=== PATIENT | male | born 1935 | race American Indian/Alaskan Native ===

== ENCOUNTER 2016-06-02 06:31 | Inpatient (IN) ==
[2016-06-02] MEDS ORDERED: cefOXitin 2,000 MG in D5% in Water (Mini-Bag+) 100 ML IVPB ONE (06:56)
[2016-06-02] MEDS ORDERED: Lidocaine -MPF 1% 2 ML VIAL ID ONE (06:56)
[2016-06-02] MEDS ORDERED: Ringers Solution, Lactated 1,000 ML IVC SCH (07:00)
[2016-06-02] MEDS ORDERED: *HR* Propofol 200 MG/20 ML VIAL IVP ONE (07:06)
[2016-06-02] MEDS ORDERED: *HR* FentaNYL (PF) 100 MCG/2 ML VIAL ONE ×2 (07:06→09:03)
[2016-06-02] MEDS ORDERED: *HR* Succinylcholine 200 MG/10 ML VIAL IVP ONE (07:07)
[2016-06-02] MEDS ORDERED: Ondansetron 4 MG/2 ML VIAL ONE (07:07)
[2016-06-02] MEDS ORDERED: Dexamethasone 4 MG/ML VIAL ONE (07:07)
[2016-06-02] MEDS ORDERED: Lidocaine -MPF 2% 2 ML VIAL ONE (07:07)
[2016-06-02] MEDS ORDERED: *HR* Rocuronium Bromide 50 MG/5 ML VIAL ONE (07:07)
[2016-06-02] MEDS ORDERED: Lidocaine -MPF 4% 5 ML AMPUL ONE (07:08)
[2016-06-02] MEDS ORDERED: EPHEDrine 50 MG/ML VIAL ONE (07:19)
--- NOTE | 2016-06-02 07:22 | Anesthesia Evaluation PreOp ---
Date of Encounter: 06/02/16 Time of Encounter: 07:20 - Past History Planned Operation: Robotic Colon Resection Cardiac History: HTN, Arrhythmia (AFib), Other (Severe MR) Pulmonary History: Denies Any Significant HX MIRROR SPECIALIST History: Denies Any Significant HX Other Medical History: Denies Any Significant HX Anesthesia History: No Prior Anesthetic Complications Alcohol Use: none Drug use: none Medications and Allergies Carvedilol 3.125 mg PO BID 05/13/16 [History] LORazepam [Ativan] 0.5 mg PO TID 05/13/16 [History] Silodal PO HS 05/13/16 [History] Torsemide 10 mg PO BID 05/13/16 [History] Acetaminophen [Tylenol] 650 mg PO Q6HR 05/18/16 [History] Ciprofloxacin [Cipro] 500 mg PO BID 5 Days 05/18/16 [Rx] MetroNIDAZOLE [Flagyl] 500 mg PO TID 7 Days 05/18/16 [Rx] Allergies No Known Allergies Allergy (Verified 05/18/16 16:49) - Meds/Allergy Pre-op Review Medications Reviewed: Yes Allergies Reviewed: Yes Beta Blockers on Current Med List: Yes (Took Coreg today 0600) Anesthesia Results - Labs Laboratory Tests 05/26/16 05/26/16 16:40 16:40 Hgb 11.3 L Hct 36.8 L Plt Count 144 Sodium 136 Potassium 4.7 H BUN 13 Creatinine 0.83 - Imaging EKG: report reviewed (AFib) Additional studies: LVEF 55% Severe MR Anesthesia Exam O2 Sat Height 1.73 m Height 1.73 m Height 1.73 m Weight 59.874 kg Weight 59.874 kg Weight 59.874 kg O2 Sat by Pulse Oximetry 99 O2 Sat by Pulse Oximetry 99 Vital Signs Temp Pulse Resp BP Pulse Ox 97.6 F 90 16 142/88 99 06/02/16 06:54 06/02/16 06:54 06/02/16 06:54 06/02/16 06:54 06/02/16 06:54 Height: 5'8 Weight: 132 lbs NPO (# of Hours): MN Pain Scale: 0 - HEENT Pupil (Motor): Pupils equal, EOMI Mallampati: III Teeth: Edentulous Oral Opening: Less than or equal to 3 - MIRROR SPECIALIST LOC: Oriented MIRROR SPECIALIST Motor: Normal RUE, Normal LUE, Normal RLE, Normal LLE, Normal Face MIRROR SPECIALIST Sensory: Normal: RUE, LUE, RLE, LLE, Face - Cardiac Rhythm: Regular Murmur: None JVD: No Carotid Bruit: No - Pulmonary Breath Sounds: bilateral Clear Respiratory Effort: Symmetrical Anesthesia Assess/Plan ASA Score: 3 (AFib) Modified Chava Scale for Level of Consciousness: Cooperative, oriented, and tranquil Anesthetic Plan: General Monitoring Plan: Standard Monitors Recovery Plan: PACU (Discussed GA, agrees to proceed)
[2016-06-02] MEDS ORDERED: Heparin 1,000 UNITS/500 mL NS 500 ML ONE (07:42)
[2016-06-02] MEDS ORDERED: Albumin Human 5% 0 GM/0 ML VIAL ONE (07:46)
--- NOTE | 2016-06-02 08:17 | History & Physical Report ---
Date of Encounter: 06/02/16 Time of Encounter: 08:16 24 Hour HP Update - Instructions Instructions: If the History and Physical is less than 30 days old and was completed prior to A.M. admission and or procedure and has NOT been updated on calendar day of procedure please complete this update prior to performing procedure. - Update Patient reports changes in Medical Condition: No Changes in assessment/condition: No Changes in Medication: No Preop tests/diagnostics Reviewed: Yes Surgery Remains Indicated: Yes Consent for Planned Operative Procedure(s) Verified: Yes - Pre-Operative Checklist Preoperative Checklist Indicated: Yes Prophylactic Antibiotic Ordered: Yes Home Medications Include Beta Salo: Yes Beta Salo Taken Today (Day of Surgery): Yes
[2016-06-02] MEDS ORDERED: *HR* Etomidate 40 MG/20 ML VIAL IVP ONE (08:24)
[2016-06-02] MEDS ORDERED: *HR* Metoprolol 5 MG/5 ML VIAL IVP ONE (09:17)
[2016-06-02] MEDS ORDERED: Esmolol 100 MG/10 ML VIAL IVP ONE (09:21)
[2016-06-02] MEDS ORDERED: *HR* Promethazine 25 MG/ML VIAL IVP PRN (09:57)
[2016-06-02] MEDS ORDERED: Neostigmine Methylsulfate 3 MG/3 ML SYRINGE ONE (10:10)
[2016-06-02] MEDS ORDERED: Acetaminophen IV 1,000 MG/100 ML INFUS..BTL ONE (10:11)
[2016-06-02] MEDS ORDERED: *HR* HYDROmorphone 2 MG/ML SYRINGE ONE (10:50)
[2016-06-02] MEDS: *HR* HYDROmorphone (PF) 1 MG/ML SYRINGE IVP PRN ×2 (11:42→11:47)
--- NOTE | 2016-06-02 11:51 | Operative Note ---
Date of procedure: 06/02/16 Pre-op diagnosis: Sigmoid Colon cancer Post-op diagnosis: same Procedure: Robotic Sigmoid resection with 33 mm EEA stapling Anesthesia: OFE Surgeon: Tonio Virk Estimated blood loss (cc): 20 Condition: stable Disposition: floor Procedure in Detail: After informed consent, patient taken operating room placed supine position. After adequate sedation anesthesia patient was placed in a lithotomy position. After proper timeout a 12 mm cannula site was placed right superior to the umbilicus. Pneumoperitoneum was greater. A 13 mm cannula was placed in right lower quadrant. 5 mm camera was placed in the right upper quadrant. An 8 mm cannula was placed in subxiphoid region followed by another 8 mm in the left lower quadrant. Patient was placed in a headdown position. The robot was docked over the patient's left hip. Small bowel swept out of the pelvis. Rectosigmoid colon was then grasped and retracted cephalad. The peritoneum was then scored level of the sacral promontory. The left ureter was identified and kept on harm's way. The inferior mesenteric artery was then taken with a vessel sealer. The lateral rectosigmoid stalks were taken down the vessel sealer. The dissection was carried out down to approximate 4 cm above the pelvic floor. Rectosigmoid colon was dissected free from the retro-pubic tubercle region. Once it was freed a 45 mm robotic Endo staplers fired across the rectum. Once it was retracted and area was demarcated on the sigmoid colon for transection. Indocyanine green was infused and we had excellent perfusion. A counterincision was made in the suprapubic region. Dissection carried down the anterior rectus sheath. The rectus muscles were then divided in the midline with Ryanne clamp. Once they were split the rectosigmoid colon was delivered. Jenniffer bowel clamps are used to place across the colon proximal and distal and transected. Allis clamps are placed on the bowel and then a pursestring suture device placed on the colon. 3-0 Prolene suture was passed. A pursestring sutures and created and a 33 mm EEA anvil was placed. Suture was tied and secured. Colon was then placed back in the pelvis. The stapler was passed through the anal canal and to the rectal stump and then the spear was placed through the staple line. The anvil was then connected secured and fired. There were 2 excellent donuts. A leak test revealed no leak. At that point the procedure was terminated. All incisions are closed with 0 Vicryl suture and 4-0 Vicryl suture. Marcaine was inserted in the Pfannenstiel incision. She tolerated the procedure well.
[2016-06-02] MEDS ORDERED: *HR* HYDROmorphone 20 MG/20 ML PCA IV PRN (12:05)
[2016-06-02] MEDS ORDERED: Naloxone 0.4 MG/ML INJ IVP PRN (12:05)
[2016-06-02] MEDS ORDERED: Ondansetron 4 MG/2 ML VIAL IVP PRN (12:05)
--- NOTE | 2016-06-02 12:11 | Anesthesia Evaluation Post Op ---
Date of Encounter: 06/02/16 Time of Encounter: 12:10 - Vital Signs Vital Signs: Vital Signs/O2 Sat/Glucose, Most Current Temp Pulse Resp BP Pulse Ox 06/02/16 11:47 66 18 108/72 96 06/02/16 11:37 97.1 F L 63 17 106/69 98 06/02/16 11:27 65 16 95/67 100 06/02/16 11:17 66 16 104/70 99 06/02/16 11:07 97.4 F L 68 20 108/74 100 - Lungs Lungs: Clear Ascult./Percussion - Airway Airway: Non-obstructed - Cardiovascular Baseline Rhythm - Mental Status Mental Status: Alert & Oriented, Answers Appropriately - Pain Pain Scale: 1 - Nausea Vomiting Nausea Vomiting: Not Present - Hydration Hydration: Suarez catheter - Discharge PostOp Status: Transfer Patient to floor
[2016-06-02] MEDS: D5% in 0.45% NACL 1,000 ML IVC SCH (13:57)
[2016-06-02] MEDS: *HR* Heparin 5,000 UNIT/ML VIAL SQ SCH ×2 (14:49→21:06)
[2016-06-02] MEDS: Ketorolac 15 MG/ML VIAL IVP SCH ×2 (18:32→23:56)
[2016-06-03] MEDS: D5% in 0.45% NACL 1,000 ML IVC SCH ×2 (03:28→14:06)
[2016-06-03 05:41] LABS: Basophils % 0.1 %; Hematocrit 33.5 % (37.5-50.1); Hemoglobin 10.8 g/dL (12.9-16.9); Immature Granulocytes % 0.4 % (0-4); Immature Platelets 3.9 % (1.1-6.1); Lymphocytes # 0.9 K/mcL (0.6-4.6); Lymphocytes % 12.9 %; Mean Corpuscular HGB Conc 32.2 g/dL (31.6-35.5); Mean Corpuscular Hemoglobin 29.5 pg (28.0-33.3); Mean Corpuscular Volume 91.5 fL (83.0-100.0); Mean Platelet Volume 10.9 fL (9.4-12.4); Monocytes # 0.5 K/mcL (0.0-1.3); Monocytes % 6.9 %; Neutrophils # 5.3 K/mcL (1.6-8.9); Platelet Count 110 K/mcL (140-400); Red Blood Count 3.66 M/mcL (4.19-5.50); Red Cell Distribution Width 18.6 % (11.5-14.5); Segmented Neutrophils % 79.7 %
[2016-06-03 05:53] LABS: BUN/Creatinine Ratio 15 (6-26); Blood Urea Nitrogen 13 mg/dL (8-26); Calcium 8.9 mg/dL (8.6-10.8); Carbon Dioxide 23 mEq/L (19-29); Chloride 101 mEq/L (98-109); Glucose 129 mg/dL (70-99); Osmolality,Calculated 274 (280-300); Potassium 4.4 mEq/L (3.5-4.5); Sodium 131 mEq/L (136-145); eGFR For African Americans > 60 (> 60); eGFR For Non-African Americans > 60 (> 60)
[2016-06-03] MEDS: Ketorolac 15 MG/ML VIAL IVP SCH ×3 (06:18→17:44)
[2016-06-03] MEDS: *HR* Heparin 5,000 UNIT/ML VIAL SQ SCH (06:24)
[2016-06-03 09:19] LABS: INR 1.2; Prothrombin Time 12.7 Seconds (9.4-12.1)
[2016-06-03 09:22] LABS: Activated Partial Thrombo Time 30.7 Seconds (26.0-36.0)
[2016-06-03] MEDS ORDERED: Lidocaine -MPF 1% 5 ML AMPUL INFILT ONE (12:02)
--- NOTE | 2016-06-03 13:52 | General Surgery Progress Note ---
Date of Encounter: 06/02/16 Time of Encounter: 12:30 - Assessment and Plan (1) Colon cancer Current Visit: No Status: Acute POD #1 Robotic Sigmoid resection with 33 mm EEA stapling Continue clear liquids while awaiting flatus Supportive care/pain control- HUMAN RESOURCES REPRESENTATIVE and toradol RLQ trocar site sutured today and bleeding resolved at this time Increase activity as tolerated Discontinue chew catheter Resume home medications IS every 1 hour while awake CBC in the am Qualifiers: Colon location: sigmoid Qualified Code(s): C18.7 - Malignant neoplasm of sigmoid colon (2) DVT prophylaxis Current Visit: Yes Status: Acute Heparin on hold for now and will resume 06/04/16 in the am EPCDs to bilateral lower extremities for DVT prophylaxis Subjective Patient reports: feels better, still having pain, tolerating liquids well, no flatus, no bowel movement, afebrile, other (Bleeding from RLQ trocar site starting at 0300. ) Objective Vital Signs - Last 8 Hours Temp Pulse Resp BP Pulse Ox 06/03/16 11:35 98.4 F 83 17 112/63 97 06/03/16 08:22 98.0 F 87 18 129/72 96 06/03/16 06:51 96 06/03/16 06:00 98.7 F 93 16 118/75 96 Intake and Output 06/02/16 06/03/16 06/03/16 23:59 07:59 15:59 Intake Total 0 / 0 1380 / 1380 346 / 346 Output Total 0 / 0 350 / 350 100 / 100 Balance 0 / 0 1030 / 1030 246 / 246 Intake: IV Fluids 1380 / 1380 286 / 286 D5% And 0.45% Nacl 1000 1380 / 1380 286 / 286 Ml Bag 1,000 ML @ 75 mls/ hr IVC .[id number] [facility] Rx#: [id number] Oral 0 / 0 60 / 60 Output: Urine 0 / 0 Catheter 350 / 350 100 / 100 Other: Meal Breakfast - General physical appearance well developed, well nourished, no distress - Eyes normal ocular movement - ENT normal mucosa, atraumatic, normocephalic - Neck Neck exam: trachea midline - Respiratory normal respiratory effort, clear to auscultation - Cardiovascular Cardiovascular exam: Present: RRR - Abdomen Abdomen: Present: bowel sounds present, soft, tender (minimal, expected post- operative tenderness), wound (RLQ trocar site with steady oozing noted) - Genitourinary other (chew catheter to SD with clear, yellow urine noted) - Neurologic CN 2-12 grossly intact - Psychiatric oriented to time, oriented to person, oriented to place, speech is normal, memory intact, other (language barrier noted) - Labs 06/03/16 05:30 06/03/16 05:30 Diabetes panel 06/03/16 Range/Units 05:30 Sodium 131 L (136-145) mEq/L Potassium 4.4 (3.5-4.5) mEq/L Chloride 101 (98-109) mEq/L Carbon Dioxide 23 (19-29) mEq/L BUN 13 (8-26) mg/dL Creatinine 0.86 (0.72-1.25) mg/dL Glucose 129 H (70-99) mg/dL Calcium 8.9 (8.6-10.8) mg/dL Calcium panel 06/03/16 Range/Units 05:30 Calcium 8.9 (8.6-10.8) mg/dL Pituitary panel 06/03/16 Range/Units 05:30 Sodium 131 L (136-145) mEq/L Potassium 4.4 (3.5-4.5) mEq/L Chloride 101 (98-109) mEq/L Carbon Dioxide 23 (19-29) mEq/L BUN 13 (8-26) mg/dL Creatinine 0.86 (0.72-1.25) mg/dL Glucose 129 H (70-99) mg/dL Calcium 8.9 (8.6-10.8) mg/dL Adrenal panel 06/03/16 Range/Units 05:30 Sodium 131 L (136-145) mEq/L Potassium 4.4 (3.5-4.5) mEq/L Chloride 101 (98-109) mEq/L Carbon Dioxide 23 (19-29) mEq/L BUN 13 (8-26) mg/dL Creatinine 0.86 (0.72-1.25) mg/dL Glucose 129 H (70-99) mg/dL Calcium 8.9 (8.6-10.8) mg/dL - VTE Documentation of Mechanical Device: Intermittent pneumatic compression device Consult Discharge Plan - Plan Referrals: Salazar Vogel DO [Primary Care Provider] -
[2016-06-03] MEDS: BISOPROLOL FUMARATE 2.5 MG PO SCH (14:01)
[2016-06-03] MEDS: TORSEMIDE 10 MG PO SCH ×3 (14:02→22:39)
[2016-06-04] MEDS: Ketorolac 15 MG/ML VIAL IVP SCH ×4 (00:06→20:26)
[2016-06-04] MEDS: D5% in 0.45% NACL 1,000 ML IVC SCH ×2 (03:35→19:13)
[2016-06-04 06:13] LABS: Basophils % 0.4 %; Eosinophils % 1.3 %; Hematocrit 28.4 % (37.5-50.1); Immature Granulocytes % 0.4 % (0-4); Mean Corpuscular Volume 88.5 fL (83.0-100.0); Red Blood Count 3.21 M/mcL (4.19-5.50)
[2016-06-04 06:15] LABS: Eosinophils # 0.1 K/mcL (0.0-0.6); Hemoglobin 9.7 g/dL (12.9-16.9); Immature Platelets 4.6 % (1.1-6.1); Lymphocytes # 0.9 K/mcL (0.6-4.6); Lymphocytes % 19.4 %; Mean Corpuscular HGB Conc 34.2 g/dL (31.6-35.5); Mean Corpuscular Hemoglobin 30.2 pg (28.0-33.3); Monocytes # 0.3 K/mcL (0.0-1.3); Monocytes % 6.8 %; Neutrophils # 3.4 K/mcL (1.6-8.9); Red Cell Distribution Width 17.5 % (11.5-14.5); Segmented Neutrophils % 71.7 %
[2016-06-04] MEDS: *HR* Heparin 5,000 UNIT/ML VIAL SQ SCH ×2 (06:22→16:50)
[2016-06-04 06:42] LABS: Platelet Count 92 K/mcL (140-400)
[2016-06-04 06:43] LABS: Anisocytosis 1+ (Not Present); Microcytosis Present (Not Present); Platelet Estimate Decreased (Normal); Reactive Lymphocytes Present (Not Present)
[2016-06-04] MEDS: BISOPROLOL FUMARATE 2.5 MG PO SCH (09:11)
[2016-06-04] MEDS: TORSEMIDE 10 MG PO SCH ×2 (09:12→20:18)
[2016-06-04] MEDS ORDERED: *HR* HYDROmorphone (PF) 1 MG/ML SYRINGE IVP PRN (11:08)
--- NOTE | 2016-06-04 11:17 | General Surgery Progress Note ---
Date of Encounter: 06/02/16 Time of Encounter: 11:00 - Assessment and Plan (1) Colon cancer Current Visit: No Status: Acute POD #2 Robotic Sigmoid resection with 33 mm EEA stapling Advance to full liquids Supportive care/pain control- added oral Tylenol for mild pain, Percocet for moderate pain and possible Dilaudid for BTP IF fluids- decrease to 60ml/hour RLQ trocar site with no signs of further bleeding Increase activity as tolerated- ambulate in the hallways Continue chew catheter Continue home medications IS every 1 hour while awake CBC in the am Qualifiers: Colon location: sigmoid Qualified Code(s): C18.7 - Malignant neoplasm of sigmoid colon (2) Thrombocytopenia Current Visit: Yes Status: Chronic Plt- 110>92 Continue to monitor (3) DVT prophylaxis Current Visit: Yes Status: Acute Heparin 5,000 units SQ twice daily for DVT prophylaxis EPCDs to bilateral lower extremities for DVT prophylaxis Subjective Patient reports: feels better, still having pain, pain is less, tolerating liquids well, flatus, bowel movement, diarrhea, blood in stool (expected), afebrile, other (Unable to void and chew catheter reinserted yesterday 06/03/16) Objective Vital Signs - Last 8 Hours Temp Pulse Resp BP Pulse Ox 06/04/16 08:05 98.6 F 92 18 128/75 96 06/04/16 04:08 98.5 F 90 16 101/68 96 Intake and Output 06/03/16 06/04/16 06/04/16 23:59 07:59 15:59 Intake Total 270 / 270 730 / 730 427 / 427 Output Total 150 / 150 550 / 550 325 / 325 Balance 120 / 120 180 / 180 102 / 102 Intake: IV Fluids 270 / 270 730 / 730 427 / 427 D5% And 0.45% Nacl 1000 270 / 270 730 / 730 427 / 427 Ml Bag 1,000 ML @ 75 mls/ hr IVC .[id number] [facility] Rx#: [id number] Oral 0 / 0 Output: Urine 150 / 150 Catheter 550 / 550 325 / 325 - General physical appearance well developed, well nourished, no distress - Eyes normal ocular movement - ENT normal mucosa, atraumatic, normocephalic - Neck Neck exam: trachea midline - Respiratory normal respiratory effort, clear to auscultation - Cardiovascular Cardiovascular exam: Present: RRR - Abdomen Abdomen: Present: bowel sounds present, soft, tender (expected post-operative tenderness) - Incision Incision: Present: clean and dry, intact - Genitourinary other (chew catheter to SD with clear, yellow urine) - Integumentary no rash - Neurologic CN 2-12 grossly intact - Psychiatric oriented to time, oriented to person, oriented to place, speech is normal, memory intact - Labs 06/04/16 05:50 06/03/16 05:30 - VTE Documentation of Mechanical Device: Intermittent pneumatic compression device Consult Discharge Plan - Plan Referrals: Salazar Vogel DO [Primary Care Provider] - - Attending Attestation I examined this patient and my medical decision-making was reviewed with the SOLAR FIELD INSTALLATION CREW MEMBER/PA/Advanced Practice Nurse/Resident Physician. I agree with the documented findings, disposition and treatment plan as described except to the extent set forth below.
--- NOTE | 2016-06-04 11:24 | Discharge Summary ---
<MikeSusan Saroj - Last Filed: 06/04/16 11:22> Date of Encounter: 06/02/16 Time of Encounter: 11:22 - Discharge Diagnosis (1) Colon cancer Priority: Primary Status: Acute Qualifiers: Colon location: sigmoid Qualified Code(s): C18.7 - Malignant neoplasm of sigmoid colon (2) Thrombocytopenia Priority: Secondary Status: Chronic (3) DVT prophylaxis Priority: Secondary Status: Acute - Discharge Medications Prescriptions: OxyCODONE/APAP 5/325 [Percocet 5/325 MG] 1 each PO Q6HR PRN #30 tablet PRN Reason: Moderate Pain Docusate [Colace] 100 mg PO BID PRN #30 capsule PRN Reason: Constipation Home Medications: Carvedilol 3.125 mg PO BID 05/13/16 [History] LORazepam [Ativan] 0.5 mg PO TID 05/13/16 [History] Silodosin [Rapaflo] 8 mg PO DAILY 05/13/16 [History] Torsemide 10 mg PO BID 05/13/16 [History] Acetaminophen [Tylenol] 650 mg PO Q6HR PRN 05/18/16 [History] Bisoprolol Fumarate 2.5 mg PO DAILY 06/02/16 [History] Ibuprofen [Motrin] 200 mg PO Q6HR PRN 06/02/16 [History] Trimetazidine 35 mg PO BID 06/02/16 [History] Docusate [Colace] 100 mg PO BID PRN #30 capsule 06/04/16 [Rx] OxyCODONE/APAP 5/325 [Percocet 5/325 MG] 1 each PO Q6HR PRN #30 tablet 06/04/16 [Rx] Allergies/Adverse Reactions: Allergies No Known Allergies Allergy (Verified 05/18/16 16:49) General Surgery Exam Initial Vital Signs Temp Pulse Resp BP Pulse Ox 97.6 F 90 16 142/88 99 06/02/16 06:54 06/02/16 06:54 06/02/16 06:54 06/02/16 06:54 06/02/16 06:54 - General physical appearance well developed, well nourished, no distress - Eyes normal ocular movement - ENT normal mucosa, atraumatic, normocephalic - Neck trachea midline - Respiratory normal respiratory effort, clear to percussion, clear to auscultation - Cardiovascular Cardiovascular exam: Present: RRR, 15, 16 - Abdomen Abdomen general surgery: Present: bowel sounds present, soft, tender (mild, post -operative tenderness) - Incision Incision: Present: clean and dry, intact - Integumentary Integumentary general surgery: Present: warm and dry - Neurologic Present: CN 2-12 grossly intact - Psychiatric Psychiatric general surgery: Present: appropriate, oriented to person, oriented to place, oriented to time, speech is normal, memory intact Date of admission: 06/02/16 12:00 Primary care physician: Matthew Pizano Consults: 06/02/16 14:34 Consult to Hospitalist [CONS] Routine Consulting Provider: Hospitalist Suman Reason for Consult: Dr. Mccauley- assistance with communication Time Notified: 14:34 Call Completed: Yes Discharging clinician: Alexandra Aragon ([facility]) Anticipated date of discharge: 06/05/16 - Patient Status Disposition: Home, Self-Care Condition: Good Functional capacity at discharge: independent ambulation Overall status at discharge: patient is progressing back to baseline - Discharge Instructions Follow Up With: Salazar Vogel DO [Primary Care Provider] - Tonio Virk DO [Partnered Physician] - 06/15/16 4:05 pm (surgery follow-up) Additional Instructions: #1 may shower, no tub bath for 2 weeks #2 wash incisions with soap and water and pat dry daily #3 no lifting, pushing, pulling more than 15 pounds for the next 4 weeks #4 no driving until off narcotics for 24 hours and able to safely react in the car #5 may climb stairs - Diet and Activity Activity: other (See additional instructions above) Diet: other (soft, chopped meat diet X 2 weeks and then advance to regular diet) - Hospital Course Hospital course: Mr. Lynn is a 80 year old male with a history of sigmoid colon cancer. He is s/p Robotic assisted sigmoid resection with Dr. Virk. He did have mild post-operative bleeding from RLQ trocar site. 3 sutures were placed in the site and no further bleeding has been noted. Hgb level is stable. He was started on clear liquids post-operatively. With return of bowel function, he was advanced to full liquids with protein supplements. He did experience urinary retention and did have to have his chew catheter replaced. He was restarted on his BPH medication on POD #1. We will begin discharge planning to home with vitals are stable and afebrile, laboratory values are stable, tolerating full liquids, pain is well controlled, ambulating and voiding without difficulty. Will plan for outpatient follow-up on 06/15/16 as previously scheduled. - Time Spent with Patient Total time spent providing and/or coordinating discharge services: Less than 30 minutes Labs on day of discharge: Labs from last 24 hours 06/04/16 05:50 WBC 4.7 RBC 3.21 L Hgb 9.7 L Hct 28.4 L MCV 88.5 MCH 30.2 MCHC 34.2 RDW 17.5 H Plt Count 92 L MPV 11.0 Immature Gran % 0.4 Seg Neutrophils % 71.7 Lymphocytes % 19.4 Monocytes % 6.8 Eosinophils % 1.3 Basophils % 0.4 Neutrophils # 3.4 Lymphocytes # 0.9 Monocytes # 0.3 Eosinophils # 0.1 Basophils # 0.0 Reactive Lymphocytes Present A Platelet Estimate Decreased L Immature Plt Fraction 4.6 Anisocytosis 1+ A Microcytosis Present A <Alexandra Aragon - Last Filed: 06/05/16 16:49> Date of Encounter: 06/05/16 - Discharge Diagnosis (1) Hypokalemia Status: Acute (2) DVT prophylaxis Status: Acute (3) Colon cancer Status: Acute Qualifiers: Colon location: sigmoid Qualified Code(s): C18.7 - Malignant neoplasm of sigmoid colon (4) Urinary retention Status: Acute General Surgery Exam Initial Vital Signs Temp Pulse Resp BP Pulse Ox 97.6 F 90 16 142/88 99 06/02/16 06:54 06/02/16 06:54 06/02/16 06:54 06/02/16 06:54 06/02/16 06:54 Date of admission: 06/02/16 12:00 Primary care physician: Matthew Pizano Consults: 06/02/16 14:34 Consult to Hospitalist [CONS] Routine Consulting Provider: Hospitalist Suman Reason for Consult: Dr. Mccauley- assistance with communication Time Notified: 14:34 Call Completed: Yes - Hospital Course Hospital course: Mr. Lynn is a 80 year old male - Time Spent with Patient Total time spent providing and/or coordinating discharge services: Labs on day of discharge: Labs from last 24 hours 06/05/16 06/05/16 04:14 04:14 WBC 4.3 RBC 2.98 L Hgb 8.8 L Hct 26.0 L MCV 87.2 MCH 29.5 MCHC 33.8 RDW 16.7 H Plt Count 86 L MPV 10.6 Immature Gran % 0.2 Seg Neutrophils % 66.1 Lymphocytes % 21.7 Monocytes % 8.1 Eosinophils % 3.7 Basophils % 0.2 Neutrophils # 2.8 Lymphocytes # 0.9 Monocytes # 0.4 Eosinophils # 0.2 Basophils # 0.0 Immature Plt Fraction 5.2 Sodium 127 L Potassium 3.1 L D Chloride 99 Carbon Dioxide 22 BUN 6 L Creatinine 0.64 L Est GFR ( Amer) > 60 Est GFR (Non-Af Amer) > 60 BUN/Creatinine Ratio 9 Glucose 123 H Calculated Osmolality 263 L Calcium 8.1 L - Attending Attestation I examined this patient and my medical decision-making was reviewed with the LUMITE INJECTOR/PA/Advanced Practice Nurse/Resident Physician. I agree with the documented findings, disposition and treatment plan as described except to the extent set forth below.
[2016-06-04] MEDS: *HR* OxyCODONE/APAP 5/325 TABLET PO PRN ×2 (15:33→22:31)
[2016-06-04] MEDS: Acetaminophen 325 MG TABLET PO PRN (20:17)
[2016-06-04] MEDS ORDERED: Ketorolac 15 MG/ML VIAL IVP STA (22:09)
[2016-06-04] MEDS ORDERED: Ondansetron 4 MG/2 ML VIAL IVP STA (22:10)
[2016-06-05] MEDS ORDERED: Ondansetron 4 MG/2 ML VIAL IVP PRN (04:00)
[2016-06-05] MEDS ORDERED: Ketorolac 15 MG/ML VIAL IVP PRN (04:00)
[2016-06-05 04:52] LABS: Basophils % 0.2 %; Hemoglobin 8.8 g/dL (12.9-16.9); Immature Granulocytes % 0.2 % (0-4)
[2016-06-05 04:54] LABS: Eosinophils # 0.2 K/mcL (0.0-0.6); Eosinophils % 3.7 %; Immature Platelets 5.2 % (1.1-6.1); Lymphocytes # 0.9 K/mcL (0.6-4.6); Lymphocytes % 21.7 %; Mean Corpuscular HGB Conc 33.8 g/dL (31.6-35.5); Mean Corpuscular Hemoglobin 29.5 pg (28.0-33.3); Mean Corpuscular Volume 87.2 fL (83.0-100.0); Mean Platelet Volume 10.6 fL (9.4-12.4); Monocytes # 0.4 K/mcL (0.0-1.3); Monocytes % 8.1 %; Red Blood Count 2.98 M/mcL (4.19-5.50); Red Cell Distribution Width 16.7 % (11.5-14.5); Segmented Neutrophils % 66.1 %
[2016-06-05 05:00] LABS: Neutrophils # 2.8 K/mcL (1.6-8.9); Platelet Count 86 K/mcL (140-400)
[2016-06-05 05:17] LABS: BUN/Creatinine Ratio 9 (6-26); Blood Urea Nitrogen 6 mg/dL (8-26); Calcium 8.1 mg/dL (8.6-10.8); Carbon Dioxide 22 mEq/L (19-29); Chloride 99 mEq/L (98-109); Glucose 123 mg/dL (70-99); Osmolality,Calculated 263 (280-300); Sodium 127 mEq/L (136-145); eGFR For African Americans > 60 (> 60); eGFR For Non-African Americans > 60 (> 60)
[2016-06-05 05:54] LABS: Potassium 3.1 mEq/L (3.5-4.5)
[2016-06-05] MEDS: *HR* Heparin 5,000 UNIT/ML VIAL SQ SCH (05:56)
[2016-06-05] MEDS: D5% in 0.45% NACL 1,000 ML IVC SCH (07:48)
[2016-06-05] MEDS: Acetaminophen 325 MG TABLET PO PRN (07:49)
[2016-06-05] MEDS: TORSEMIDE 10 MG PO SCH (07:53)
[2016-06-05] MEDS: BISOPROLOL FUMARATE 2.5 MG PO SCH (07:53)
--- NOTE | 2016-06-05 13:36 | General Surgery Progress Note ---
Date of Encounter: 06/05/16 Time of Encounter: 12:00 - Assessment and Plan (1) Hypokalemia Current Visit: Yes Status: Acute oral potassium replacement today, recheck tomorrow (2) DVT prophylaxis Current Visit: Yes Status: Acute heparin sq, ambulate (3) Colon cancer Current Visit: No Status: Acute s/p robotic sigmoid colectomy tolerating clears/fulls passing flatus and had bm no nausea will advance to soft vegetarian diet dc planning Qualifiers: Colon location: sigmoid Qualified Code(s): C18.7 - Malignant neoplasm of sigmoid colon (4) Urinary retention Current Visit: Yes Status: Acute chew catheter to be removed with voiding trial today, on flomax Subjective Patient reports: no new complaints, feels better, pain is less, tolerating liquids well, flatus, bowel movement, afebrile Objective Vital Signs - Last 8 Hours Temp Pulse Resp BP Pulse Ox 06/05/16 10:32 98.2 F 72 14 106/61 97 06/05/16 06:40 99.5 F 81 14 126/69 97 Intake and Output 06/04/16 06/05/16 06/05/16 23:59 07:59 15:59 Intake Total 411 / 411 1240 / 1240 Output Total 250 / 250 100 / 100 1800 / 1800 Balance 161 / 161 1140 / 1140 -1800 / -1800 Intake: IV Fluids 411 / 411 1000 / 1000 D5% And 0.45% Nacl 1000 411 / 411 1000 / 1000 Ml Bag 1,000 ML @ 75 mls/ hr IVC .[id number] [facility] Rx#: [id number] Oral 0 / 0 240 / 240 Output: Urine 0 / 0 Catheter 250 / 250 100 / 100 1800 / 1800 Other: Stool Size Small Stool Consistency loose Stool Characteristics Mucoid Stool Color Green Black # Bowel Movements 1 Weight 65.181 kg Patient Weight 06/05/16 23:59 Weight 65.181 kg - General physical appearance no distress, cachectic - Eyes PERRL, normal ocular movement - ENT atraumatic, normocephalic - Neck Neck exam: trachea midline - Respiratory normal expansion, clear to auscultation - Cardiovascular Cardiovascular exam: Present: RRR - Abdomen Abdomen: Present: bowel sounds present, soft, tender (expected mild post op tenderness) - Incision Incision: Present: clean and dry, intact - Integumentary no rash, no growths - Neurologic CN 2-12 grossly intact - Musculoskeletal normal posture - Psychiatric oriented to time, oriented to person, memory intact - Labs 06/05/16 04:14 06/05/16 04:14 Diabetes panel 06/05/16 Range/Units 04:14 Sodium 127 L (136-145) mEq/L Potassium 3.1 L D (3.5-4.5) mEq/L Chloride 99 (98-109) mEq/L Carbon Dioxide 22 (19-29) mEq/L BUN 6 L (8-26) mg/dL Creatinine 0.64 L (0.72-1.25) mg/dL Glucose 123 H (70-99) mg/dL Calcium 8.1 L (8.6-10.8) mg/dL Calcium panel 06/05/16 Range/Units 04:14 Calcium 8.1 L (8.6-10.8) mg/dL Pituitary panel 06/05/16 Range/Units 04:14 Sodium 127 L (136-145) mEq/L Potassium 3.1 L D (3.5-4.5) mEq/L Chloride 99 (98-109) mEq/L Carbon Dioxide 22 (19-29) mEq/L BUN 6 L (8-26) mg/dL Creatinine 0.64 L (0.72-1.25) mg/dL Glucose 123 H (70-99) mg/dL Calcium 8.1 L (8.6-10.8) mg/dL Adrenal panel 06/05/16 Range/Units 04:14 Sodium 127 L (136-145) mEq/L Potassium 3.1 L D (3.5-4.5) mEq/L Chloride 99 (98-109) mEq/L Carbon Dioxide 22 (19-29) mEq/L BUN 6 L (8-26) mg/dL Creatinine 0.64 L (0.72-1.25) mg/dL Glucose 123 H (70-99) mg/dL Calcium 8.1 L (8.6-10.8) mg/dL - VTE Documentation of Mechanical Device: Intermittent pneumatic compression device Consult Discharge Plan - Plan Additional Instructions: #1 may shower, no tub bath for 2 weeks #2 wash incisions with soap and water and pat dry daily #3 no lifting, pushing, pulling more than 15 pounds for the next 4 weeks #4 no driving until off narcotics for 24 hours and able to safely react in the car #5 may climb stairs Referrals: Tonio Virk DO [Partnered Physician] - 06/15/16 4:05 pm (surgery follow-up) Salazar Vogel DO [Primary Care Provider] - Prescriptions: OxyCODONE/APAP 5/325 [Percocet 5/325 MG] 1 each PO Q6HR PRN #30 tablet PRN Reason: Moderate Pain Docusate [Colace] 100 mg PO BID PRN #30 capsule PRN Reason: Constipation
[2016-06-05 15:47] VITALS: BP 100/61
== END 2016-06-05 17:34 | disposition home or self-care (01) | DRG 330 ==
LOC: SAMDAY 06:31 → 3BNU 12:00 → 3ANU 13:23
PROVIDERS: ADMIT Surgery; ATTEND Surgery

== ENCOUNTER 2020-10-26 08:20 | Inpatient (IN) ==
[2020-10-26] MEDS: 0.9 % Sodium Chloride 1,000 ML IVC SCH (10:06)
[2020-10-27] MEDS: *HR* OxyCODONE/APAP 5/325 TABLET PO PRN ×2 (04:58→21:16)
[2020-10-27] MEDS ORDERED: Lidocaine -MPF 2% 2 ML VIAL ONE (07:03)
[2020-10-27] MEDS: 0.9 % Sodium Chloride 1,000 ML IVC SCH (07:11)
[2020-10-27] MEDS ORDERED: Simethicone 40 MG/0.6 ML MLS IR ONE (07:15)
[2020-10-27 09:05] LABS: Basophils % 0.2 %; Mean Corpuscular Volume 91.4 fL (83.0-100.0)
[2020-10-27 09:07] LABS: Eosinophils % 0.2 %; Hematocrit 27.5 % (37.5-50.1); Immature Granulocytes % 0.6 % (0-4); Immature Platelets 2.3 % (1.1-6.1); Lymphocytes # 0.7 K/mcL (0.6-4.6); Lymphocytes % 6.6 %; Mean Corpuscular HGB Conc 32.7 g/dL (31.6-35.5); Mean Corpuscular Hemoglobin 29.9 pg (28.0-33.3); Mean Platelet Volume 9.7 fL (9.4-12.4); Monocytes # 0.6 K/mcL (0.0-1.3); Monocytes % 5.6 %; Neutrophils # 9.2 K/mcL (1.6-8.9); Platelet Count 105 K/mcL (140-400); Red Blood Count 3.01 M/mcL (4.19-5.50); Red Cell Distribution Width 17.3 % (11.5-14.5); Segmented Neutrophils % 86.8 %; White Blood Count 10.6 K/mcL (4.3-11.1)
[2020-10-27 09:16] LABS: BUN/Creatinine Ratio 21 (6-26); Blood Urea Nitrogen 12 mg/dL (8-23); Carbon Dioxide 23 mEq/L (23-29); Chloride 103 mEq/L (98-107); Glucose 124 mg/dL (70-105); Magnesium 1.8 mg/dL (1.6-2.6); Osmolality,Calculated 271 (280-300); Phosphorous 3.5 mg/dL (2.7-4.5); Potassium 3.7 mEq/L (3.5-5.1); Sodium 130 mEq/L (136-145); eGFR For African Americans > 60 (> 60); eGFR For Non-African Americans > 60 (> 60)
[2020-10-27 11:02] LABS: Calcium 9.1 mg/dL (8.6-10.3)
[2020-10-28] MEDS: 0.9 % Sodium Chloride 1,000 ML IVC SCH ×2 (08:59→23:56)
[2020-10-28 11:06] LABS: Basophils % 0.2 %; Hemoglobin 9.2 g/dL (12.9-16.9); Red Cell Distribution Width 17.2 % (11.5-14.5)
[2020-10-28 11:09] LABS: Eosinophils % 0.1 %; Hematocrit 28.5 % (37.5-50.1); Immature Granulocytes % 0.3 % (0-4); Immature Platelets 2.7 % (1.1-6.1); Lymphocytes # 0.7 K/mcL (0.6-4.6); Lymphocytes % 7.5 %; Mean Corpuscular HGB Conc 32.3 g/dL (31.6-35.5); Mean Corpuscular Hemoglobin 29.7 pg (28.0-33.3); Mean Corpuscular Volume 91.9 fL (83.0-100.0); Mean Platelet Volume 9.7 fL (9.4-12.4); Monocytes # 0.5 K/mcL (0.0-1.3); Neutrophils # 8.1 K/mcL (1.6-8.9); Platelet Count 96 K/mcL (140-400); Segmented Neutrophils % 86.9 %; White Blood Count 9.3 K/mcL (4.3-11.1)
[2020-10-28 11:15] LABS: INR 1.2; Prothrombin Time 13.9 Seconds (9.4-12.1)
[2020-10-28 11:26] LABS: BUN/Creatinine Ratio 17 (6-26); Blood Urea Nitrogen 12 mg/dL (8-23); Carbon Dioxide 19 mEq/L (23-29); Chloride 102 mEq/L (98-107); Glucose 158 mg/dL (70-105); Magnesium 1.6 mg/dL (1.6-2.6); Osmolality,Calculated 271 (280-300); Phosphorous 3.2 mg/dL (2.7-4.5); Potassium 3.7 mEq/L (3.5-5.1); Sodium 129 mEq/L (136-145); eGFR For African Americans > 60 (> 60); eGFR For Non-African Americans > 60 (> 60)
[2020-10-28 12:31] LABS: Iron 147 mcg/dL (65-175)
[2020-10-28] MEDS: Pantoprazole 40 MG VIAL IVP SCH (12:55)
[2020-10-28] MEDS ORDERED: Albuterol 2.5 MG/3 ML NEBULIZER IH PRN (16:11)
[2020-10-28] MEDS ORDERED: Albuterol 2.5 MG/3 ML NEBULIZER ONE (16:13)
[2020-10-28] MEDS: *HR* OxyCODONE/APAP 5/325 TABLET PO PRN ×2 (17:25→23:56)
[2020-10-28] MEDS: *HR* Heparin 5,000 UNIT/ML VIAL SQ SCH (17:39)
[2020-10-28 18:58] LABS: % Iron Saturation 65 % (20-55); Transferrin 162 mg/dL (203-362)
[2020-10-28] MEDS: Ondansetron 4 MG/2 ML VIAL IVP PRN (19:01)
[2020-10-29] MEDS: *HR* Heparin 5,000 UNIT/ML VIAL SQ SCH (05:47)
[2020-10-29] MEDS: Ondansetron 4 MG/2 ML VIAL IVP PRN (06:17)
[2020-10-29 07:57] LABS: Basophils % 0.2 %; Eosinophils % 0.5 %; Immature Granulocytes % 0.6 % (0-4); Mean Corpuscular Volume 92.7 fL (83.0-100.0); Red Blood Count 3.02 M/mcL (4.19-5.50); Red Cell Distribution Width 17.2 % (11.5-14.5)
[2020-10-29 07:59] LABS: Immature Platelets 3.4 % (1.1-6.1); Lymphocytes # 1.2 K/mcL (0.6-4.6); Lymphocytes % 14.9 %; Mean Corpuscular HGB Conc 32.1 g/dL (31.6-35.5); Mean Corpuscular Hemoglobin 29.8 pg (28.0-33.3); Mean Platelet Volume 10.4 fL (9.4-12.4); Monocytes # 0.5 K/mcL (0.0-1.3); Monocytes % 5.7 %; Neutrophils # 6.3 K/mcL (1.6-8.9); Segmented Neutrophils % 78.1 %
[2020-10-29 08:04] LABS: Platelet Count 90 K/mcL (140-400)
[2020-10-29 08:14] LABS: BUN/Creatinine Ratio 19 (6-26); Blood Urea Nitrogen 12 mg/dL (8-23); Calcium 9.2 mg/dL (8.6-10.3); Carbon Dioxide 22 mEq/L (23-29); Chloride 103 mEq/L (98-107); Glucose 106 mg/dL (70-105); Magnesium 1.7 mg/dL (1.6-2.6); Osmolality,Calculated 270 (280-300); Phosphorous 3.3 mg/dL (2.7-4.5); Potassium 3.9 mEq/L (3.5-5.1); Sodium 130 mEq/L (136-145); eGFR For African Americans > 60 (> 60); eGFR For Non-African Americans > 60 (> 60)
[2020-10-29] MEDS ORDERED: 0.9 % Sodium Chloride 250 ML IVC SCH (08:30)
[2020-10-29] MEDS: Pantoprazole 40 MG VIAL IVP SCH (09:47)
[2020-10-29] MEDS ORDERED: *HR* FentaNYL (PF) 100 MCG/2 ML VIAL ONE (15:53)
[2020-10-29] MEDS ORDERED: *HR* Rocuronium Bromide 50 MG/5 ML VIAL ONE ×2 (15:53→18:44)
[2020-10-29] MEDS ORDERED: Lidocaine -MPF 2% 2 ML VIAL ONE (15:53)
[2020-10-29] MEDS ORDERED: *HR* Propofol 200 MG/20 ML VIAL IVP ONE (15:53)
[2020-10-29] MEDS ORDERED: CefOXitin 2,000 MG VIAL ONE (16:09)
[2020-10-29] MEDS ORDERED: *HR* Phenylephrine 10 MG/ML VIAL ONE (17:10)
[2020-10-29] MEDS ORDERED: *HR* Vasopressin 20 UNIT/ML VIAL ONE (17:16)
[2020-10-29 18:10] LABS: Hematocrit 27.6 % (37.5-50.1); Hemoglobin 8.9 g/dL (12.9-16.9); Immature Platelets 4.4 % (1.1-6.1); Mean Corpuscular HGB Conc 32.2 g/dL (31.6-35.5); Mean Corpuscular Hemoglobin 29.4 pg (28.0-33.3); Mean Corpuscular Volume 91.1 fL (83.0-100.0); Mean Platelet Volume 10.5 fL (9.4-12.4); Red Blood Count 3.03 M/mcL (4.19-5.50); Red Cell Distribution Width 16.9 % (11.5-14.5); White Blood Count 7.1 K/mcL (4.3-11.1)
[2020-10-29] MEDS ORDERED: Ondansetron 4 MG/2 ML VIAL ONE (19:05)
[2020-10-29] MEDS ORDERED: *HR* HYDROMORPHONE 2 MG/ML VIAL ONE (19:14)
[2020-10-29] MEDS ORDERED: Ondansetron 4 MG/2 ML VIAL IVP PRN (20:20)
[2020-10-29] MEDS ORDERED: Albuterol 2.5 MG/3 ML NEBULIZER IH PRN (20:20)
[2020-10-29] MEDS ORDERED: *HR* OxyCODONE Oral Soln 5 MG/5 ML UD.LIQ PO PRN (20:20)
[2020-10-29] MEDS: *HR* OxyCODONE Oral Soln 5 MG/5 ML UD.LIQ PO PRN (20:42)
[2020-10-29] MEDS: Ketorolac 15 MG/ML VIAL IVP SCH (23:08)
[2020-10-29] MEDS: Acetaminophen IV 1,000 MG/100 ML BAG IVPB SCH (23:09)
[2020-10-30] MEDS: *HR* Heparin 5,000 UNIT/ML VIAL SQ SCH ×2 (00:06→17:34)
[2020-10-30] MEDS: 0.9 % Sodium Chloride 1,000 ML IVC SCH ×3 (04:50→20:22)
[2020-10-30 05:20] LABS: Basophils % 0.1 %; Hematocrit 30.2 % (37.5-50.1); Hemoglobin 9.6 g/dL (12.9-16.9); Immature Granulocytes % 0.6 % (0-4); Lymphocytes % 6.3 %; Mean Corpuscular HGB Conc 31.8 g/dL (31.6-35.5); Mean Corpuscular Hemoglobin 29.4 pg (28.0-33.3); Mean Corpuscular Volume 92.6 fL (83.0-100.0); Mean Platelet Volume 10.7 fL (9.4-12.4); Monocytes # 0.7 K/mcL (0.0-1.3); Monocytes % 4.5 %; Neutrophils # 13.7 K/mcL (1.6-8.9); Platelet Count 114 K/mcL (140-400); Red Blood Count 3.26 M/mcL (4.19-5.50); Red Cell Distribution Width 17.2 % (11.5-14.5); Segmented Neutrophils % 88.5 %; White Blood Count 15.5 K/mcL (4.3-11.1)
[2020-10-30] MEDS: Ketorolac 15 MG/ML VIAL IVP SCH ×4 (05:31→23:00)
[2020-10-30] MEDS: Acetaminophen IV 1,000 MG/100 ML BAG IVPB SCH ×4 (05:31→23:01)
[2020-10-30 05:48] LABS: BUN/Creatinine Ratio 20 (6-26); Blood Urea Nitrogen 16 mg/dL (8-23); Calcium 8.9 mg/dL (8.6-10.3); Carbon Dioxide 19 mEq/L (23-29); Chloride 105 mEq/L (98-107); Glucose 134 mg/dL (70-105); Magnesium 1.6 mg/dL (1.6-2.6); Osmolality,Calculated 277 (280-300); Phosphorous 5.2 mg/dL (2.7-4.5); Potassium 4.9 mEq/L (3.5-5.1); Sodium 132 mEq/L (136-145); eGFR For African Americans > 60 (> 60); eGFR For Non-African Americans > 60 (> 60)
[2020-10-30] MEDS ORDERED: 0.9 % Sodium Chloride 500 ML IVC ONE (09:33)
[2020-10-30] MEDS: Pantoprazole 40 MG VIAL IVP SCH (10:21)
[2020-10-30] MEDS ORDERED: Albumin 25% 25gram/100mL 25 GM/100 ML IV.SOLN IVPB ONE (13:48)
[2020-10-30] MEDS ORDERED: 0.9 % Sodium Chloride 250 ML IVC SCH (14:00)
[2020-10-30] MEDS ORDERED: 0.9 % Sodium Chloride 1,000 ML IVC SCH (14:46)
[2020-10-30 15:05] LABS: Basophils % 0.3 %; Eosinophils % 0.1 %; Hematocrit 24.9 % (37.5-50.1); Immature Granulocytes % 0.5 % (0-4); Immature Platelets 2.7 % (1.1-6.1); Lymphocytes # 0.7 K/mcL (0.6-4.6); Lymphocytes % 8.7 %; Mean Corpuscular HGB Conc 32.1 g/dL (31.6-35.5); Mean Corpuscular Hemoglobin 30.1 pg (28.0-33.3); Mean Corpuscular Volume 93.6 fL (83.0-100.0); Mean Platelet Volume 10.4 fL (9.4-12.4); Monocytes # 0.4 K/mcL (0.0-1.3); Monocytes % 5.6 %; Platelet Count 110 K/mcL (140-400); Red Blood Count 2.66 M/mcL (4.19-5.50); Red Cell Distribution Width 17.4 % (11.5-14.5); Segmented Neutrophils % 84.8 %; White Blood Count 7.6 K/mcL (4.3-11.1)
[2020-10-30 15:11] LABS: Neutrophils # 6.4 K/mcL (1.6-8.9)
[2020-10-30] MEDS: Albumin Human 5% 12.5 GM/250 ML IV.SOLN IVPB ONE ×2 (15:44→23:10)
[2020-10-30] MEDS: Metoclopramide 10 MG/2 ML VIAL IVP SCH ×2 (17:38→23:01)
[2020-10-30] MEDS: *HR* OxyCODONE Oral Soln 5 MG/5 ML UD.LIQ PO PRN (23:45)
[2020-10-31 01:35] LABS: Basophils % 0.2 %; Eosinophils # 0.1 K/mcL (0.0-0.6); Eosinophils % 0.9 %; Hematocrit 28.9 % (37.5-50.1); Hemoglobin 9.4 g/dL (12.9-16.9); Immature Granulocytes % 0.5 % (0-4); Lymphocytes # 0.7 K/mcL (0.6-4.6); Lymphocytes % 7.8 %; Mean Corpuscular HGB Conc 32.5 g/dL (31.6-35.5); Mean Corpuscular Hemoglobin 30.2 pg (28.0-33.3); Mean Corpuscular Volume 92.9 fL (83.0-100.0); Mean Platelet Volume 10.3 fL (9.4-12.4); Monocytes # 0.4 K/mcL (0.0-1.3); Monocytes % 4.8 %; Neutrophils # 7.5 K/mcL (1.6-8.9); Platelet Count 109 K/mcL (140-400); Red Blood Count 3.11 M/mcL (4.19-5.50); Red Cell Distribution Width 16.9 % (11.5-14.5); Segmented Neutrophils % 85.8 %; White Blood Count 8.7 K/mcL (4.3-11.1)
[2020-10-31 01:59] LABS: BUN/Creatinine Ratio 21 (6-26); Blood Urea Nitrogen 21 mg/dL (8-23); Calcium 8.4 mg/dL (8.6-10.3); Carbon Dioxide 18 mEq/L (23-29); Chloride 107 mEq/L (98-107); Glucose 134 mg/dL (70-105); Magnesium 1.5 mg/dL (1.6-2.6); Osmolality,Calculated 279 (280-300); Phosphorous 3.8 mg/dL (2.7-4.5); Potassium 3.8 mEq/L (3.5-5.1); Sodium 132 mEq/L (136-145); eGFR For African Americans > 60 (> 60); eGFR For Non-African Americans > 60 (> 60)
[2020-10-31] MEDS: *HR* OxyCODONE Oral Soln 5 MG/5 ML UD.LIQ PO PRN ×2 (03:45→18:13)
[2020-10-31] MEDS: 0.9 % Sodium Chloride 1,000 ML IVC SCH ×4 (05:43→20:23)
[2020-10-31] MEDS: Metoclopramide 10 MG/2 ML VIAL IVP SCH ×4 (05:44→23:16)
[2020-10-31] MEDS: Acetaminophen IV 1,000 MG/100 ML BAG IVPB SCH ×4 (05:45→23:16)
[2020-10-31] MEDS: *HR* Heparin 5,000 UNIT/ML VIAL SQ SCH ×2 (05:45→18:12)
[2020-10-31] MEDS ORDERED: Ketorolac 15 MG/ML VIAL IVP SCH (06:00)
[2020-10-31] MEDS ORDERED: 0.9 % Sodium Chloride 250 ML IVC ONE ×2 (09:12→18:13)
[2020-10-31] MEDS: Pantoprazole 40 MG VIAL IVP SCH (09:13)
[2020-10-31] MEDS ORDERED: Simethicone 80 MG TAB.CHEW PO PRN (11:03)
[2020-10-31] MEDS ORDERED: Orphenadrine 60 MG/2 ML VIAL IVP ONE (11:03)
[2020-10-31 14:02] LABS: INR 1.2; Prothrombin Time 13.8 Seconds (9.4-12.1)
[2020-10-31] MEDS: *HR* Metoprolol 5 MG/5 ML VIAL IVP SCH ×2 (18:12→23:16)
[2020-10-31] MEDS ORDERED: 0.9 % Sodium Chloride 500 ML IVC ONE (18:20)
[2020-11-01] MEDS: *HR* OxyCODONE Oral Soln 5 MG/5 ML UD.LIQ PO PRN (01:26)
[2020-11-01 01:43] LABS: Basophils % 0.2 %; Eosinophils % 0.1 %; Hematocrit 29.9 % (37.5-50.1); Hemoglobin 9.7 g/dL (12.9-16.9); Immature Granulocytes % 1.1 % (0-4); Lymphocytes # 0.5 K/mcL (0.6-4.6); Mean Corpuscular HGB Conc 32.4 g/dL (31.6-35.5); Mean Corpuscular Hemoglobin 29.8 pg (28.0-33.3); Mean Platelet Volume 10.3 fL (9.4-12.4); Monocytes # 0.4 K/mcL (0.0-1.3); Monocytes % 2.3 %; Neutrophils # 16.6 K/mcL (1.6-8.9); Platelet Count 119 K/mcL (140-400); Red Blood Count 3.25 M/mcL (4.19-5.50); Red Cell Distribution Width 17.3 % (11.5-14.5); Segmented Neutrophils % 93.3 %
[2020-11-01 01:44] LABS: White Blood Count 17.8 K/mcL (4.3-11.1)
[2020-11-01 02:02] LABS: BUN/Creatinine Ratio 24 (6-26); Blood Urea Nitrogen 21 mg/dL (8-23); Calcium 8.7 mg/dL (8.6-10.3); Carbon Dioxide 16 mEq/L (23-29); Chloride 107 mEq/L (98-107); Glucose 135 mg/dL (70-105); Magnesium 1.9 mg/dL (1.6-2.6); Osmolality,Calculated 279 (280-300); Phosphorous 3.5 mg/dL (2.7-4.5); Potassium 3.9 mEq/L (3.5-5.1); Sodium 132 mEq/L (136-145); eGFR For African Americans > 60 (> 60); eGFR For Non-African Americans > 60 (> 60)
[2020-11-01] MEDS: Metoclopramide 10 MG/2 ML VIAL IVP SCH ×4 (05:00→23:53)
[2020-11-01] MEDS: *HR* Heparin 5,000 UNIT/ML VIAL SQ SCH ×2 (05:00→18:45)
[2020-11-01] MEDS: *HR* Metoprolol 5 MG/5 ML VIAL IVP SCH ×4 (05:00→20:41)
[2020-11-01] MEDS: Acetaminophen IV 1,000 MG/100 ML BAG IVPB SCH ×4 (05:00→23:53)
[2020-11-01] MEDS: 0.9 % Sodium Chloride 1,000 ML IVC SCH ×2 (05:01→16:46)
[2020-11-01] MEDS ORDERED: *HR* OxyCODONE Oral Soln 5 MG/5 ML UD.LIQ PO PRN ×2 (08:45)
[2020-11-01] MEDS: Piperacillin/Tazobactam 3.375 GM in 0.9 % Sodium Chloride Mini Bag 100 ML IVPB SCH ×3 (09:27→23:53)
[2020-11-01] MEDS: Pantoprazole 40 MG VIAL IVP SCH (09:27)
[2020-11-01] MEDS ORDERED: Perflutren Lipid Microsphere 1.3 ML in 0.9 % Sodium Chloride 8.7 ML IVP PRN (09:33)
[2020-11-01] MEDS ORDERED: Furosemide 20 MG/2 ML VIAL IVP ONE ×2 (10:07→14:53)
[2020-11-01] MEDS: Ipratropium/Albuterol Neb 3 ML IH SCH ×3 (11:40→21:39)
[2020-11-01 13:30] LABS: Basophils % 0.2 %; Eosinophils % 0.3 %; Hemoglobin 10.5 g/dL (12.9-16.9); Immature Granulocytes % 0.9 % (0-4); Lymphocytes % 2.9 %; Monocytes % 2.2 %; Segmented Neutrophils % 93.5 %
[2020-11-01 13:32] LABS: Eosinophils # 0.1 K/mcL (0.0-0.6); Hematocrit 32.3 % (37.5-50.1); Lymphocytes # 0.5 K/mcL (0.6-4.6); Mean Corpuscular HGB Conc 32.5 g/dL (31.6-35.5); Mean Corpuscular Hemoglobin 30.4 pg (28.0-33.3); Mean Corpuscular Volume 93.6 fL (83.0-100.0); Mean Platelet Volume 9.9 fL (9.4-12.4); Monocytes # 0.4 K/mcL (0.0-1.3); Neutrophils # 16.8 K/mcL (1.6-8.9); Platelet Count 142 K/mcL (140-400); Red Blood Count 3.45 M/mcL (4.19-5.50)
[2020-11-01] MEDS: Furosemide 20 MG/2 ML VIAL IVP SCH (20:40)
[2020-11-02] MEDS ORDERED: Chloraseptic Spray 177 ML BOTTLE MM PRN ×2 (00:05→19:00)
[2020-11-02 00:53] LABS: VBG Ionized Calcium 1.23 mmol/L (1.15-1.35)
[2020-11-02 00:58] LABS: Bacteria,Urine Few per hpf (None-Few); Bilirubin,Urine Negative (Negative); Blood,Urine Large (Negative); Clarity,Urine Clear (Clear); Color,Urine Colorless (Yellow); Glucose,Urine (UA) Normal (Normal); Hyaline Casts,Urine Few per lpf (None Seen); Ketones,Urine Negative (Negative); Leukocyte Esterase,Urine Negative (Negative); Mucus,Urine Few per lpf (None-Few); Nitrite,Urine Negative (Negative); PH,Urine 5.5 pH Units (5.0-8.0); Protein,Urine Negative (Neg-Trace); RBC,Urine TNTC per hpf (0-3); Specific Gravity,Urine 1.012 (1.010-1.025); Squamous Epithelial Cell,Urine Few per hpf (None-Few); Urobilinogen,Urine Normal (Normal)
[2020-11-02 00:59] LABS: BUN/Creatinine Ratio 24 (6-26); Blood Urea Nitrogen 20 mg/dL (8-23); Calcium 8.9 mg/dL (8.6-10.3); Carbon Dioxide 17 mEq/L (23-29); Chloride 107 mEq/L (98-107); Glucose 130 mg/dL (70-105); Magnesium 1.9 mg/dL (1.6-2.6); Osmolality,Calculated 284 (280-300); Potassium 3.3 mEq/L (3.5-5.1); Sodium 135 mEq/L (136-145); eGFR For African Americans > 60 (> 60); eGFR For Non-African Americans > 60 (> 60)
[2020-11-02] MEDS: Ipratropium/Albuterol Neb 3 ML IH SCH ×4 (03:32→21:57)
[2020-11-02] MEDS: *HR* Metoprolol 5 MG/5 ML VIAL IVP SCH ×4 (03:55→21:40)
[2020-11-02] MEDS: Acetaminophen IV 1,000 MG/100 ML BAG IVPB SCH ×4 (06:25→23:34)
[2020-11-02] MEDS: *HR* Heparin 5,000 UNIT/ML VIAL SQ SCH (06:26)
[2020-11-02] MEDS: Metoclopramide 10 MG/2 ML VIAL IVP SCH ×4 (06:26→23:34)
[2020-11-02] MEDS ORDERED: Potassium Chloride 20 MEQ, Lidocaine 1% 2 ML in 0.9 % Sodium Chloride 250 ML IVPB ONE ×2 (07:33→13:02)
[2020-11-02] MEDS: Pantoprazole 40 MG VIAL IVP SCH (08:08)
[2020-11-02] MEDS: Furosemide 20 MG/2 ML VIAL IVP SCH ×2 (08:09→21:39)
[2020-11-02] MEDS: Piperacillin/Tazobactam 3.375 GM in 0.9 % Sodium Chloride Mini Bag 100 ML IVPB SCH ×3 (08:13→23:35)
[2020-11-02 11:08] LABS: Basophils % 0.2 %; Eosinophils # 0.2 K/mcL (0.0-0.6); Eosinophils % 1.7 %; Hematocrit 28.3 % (37.5-50.1); Immature Granulocytes % 1.2 % (0-4); Lymphocytes # 1.1 K/mcL (0.6-4.6); Lymphocytes % 11.2 %; Mean Corpuscular HGB Conc 31.8 g/dL (31.6-35.5); Mean Corpuscular Hemoglobin 29.6 pg (28.0-33.3); Mean Corpuscular Volume 93.1 fL (83.0-100.0); Mean Platelet Volume 10.4 fL (9.4-12.4); Monocytes # 0.4 K/mcL (0.0-1.3); Monocytes % 4.5 %; Neutrophils # 7.8 K/mcL (1.6-8.9); Platelet Count 118 K/mcL (140-400); Red Blood Count 3.04 M/mcL (4.19-5.50); Red Cell Distribution Width 18.3 % (11.5-14.5); Segmented Neutrophils % 81.2 %; White Blood Count 9.6 K/mcL (4.3-11.1)
[2020-11-02] MEDS: 0.9 % Sodium Chloride 1,000 ML IVC SCH (12:33)
[2020-11-02] MEDS ORDERED: *HR* Enoxaparin 80 MG/0.8 ML SYRINGE SQ SCH (18:00)
[2020-11-02] MEDS ORDERED: Albuterol 2.5 MG/3 ML NEBULIZER IH PRN (19:00)
[2020-11-02] MEDS ORDERED: Perflutren Lipid Microsphere 1.3 ML in 0.9 % Sodium Chloride 8.7 ML IVP PRN (19:00)
[2020-11-02] MEDS ORDERED: Ondansetron 4 MG/2 ML VIAL IVP PRN (19:00)
[2020-11-02] MEDS ORDERED: *HR* OxyCODONE Oral Soln 5 MG/5 ML UD.LIQ PO PRN ×2 (19:00)
[2020-11-03] MEDS: Ipratropium/Albuterol Neb 3 ML IH SCH ×3 (03:54→15:51)
[2020-11-03] MEDS: *HR* Metoprolol 5 MG/5 ML VIAL IVP SCH ×2 (04:53→10:18)
[2020-11-03] MEDS: Acetaminophen IV 1,000 MG/100 ML BAG IVPB SCH ×2 (05:00→12:21)
[2020-11-03] MEDS: Metoclopramide 10 MG/2 ML VIAL IVP SCH ×4 (05:01→23:56)
[2020-11-03] MEDS: *HR* Enoxaparin 80 MG/0.8 ML SYRINGE SQ SCH ×2 (06:04→17:57)
[2020-11-03 06:58] LABS: Alanine Aminotransferase 11 Units/L (7-52); Albumin 2.5 g/dL (3.5-5.7); Albumin/Globulin Ratio 0.7 (1.1-2.2); Alkaline Phosphatase 92 Units/L (34-104); Aspartate Amino Transferase 14 Units/L (13-39); BUN/Creatinine Ratio 23 (6-26); Bilirubin,Total 0.7 mg/dL (0.3-1.0); Blood Urea Nitrogen 18 mg/dL (8-23); Calcium 8.8 mg/dL (8.6-10.3); Carbon Dioxide 22 mEq/L (23-29); Chloride 107 mEq/L (98-107); Globulin 3.6 g/dL (2.4-3.5); Glucose 104 mg/dL (70-105); Magnesium 1.8 mg/dL (1.6-2.6); Osmolality,Calculated 288 (280-300); Phosphorous 2.8 mg/dL (2.7-4.5); Potassium 3.1 mEq/L (3.5-5.1); Sodium 138 mEq/L (136-145); Total Protein 6.1 g/dL (6.4-8.9); eGFR For African Americans > 60 (> 60); eGFR For Non-African Americans > 60 (> 60)
[2020-11-03] MEDS ORDERED: Potassium Phosphate 44 MEQ in 0.9 % Sodium Chloride 250 ML IVPB ONE (10:04)
[2020-11-03] MEDS: Piperacillin/Tazobactam 3.375 GM in 0.9 % Sodium Chloride Mini Bag 100 ML IVPB SCH ×3 (10:17→23:55)
[2020-11-03] MEDS: Pantoprazole 40 MG VIAL IVP SCH (10:17)
[2020-11-03] MEDS: Furosemide 20 MG/2 ML VIAL IVP SCH ×2 (10:18→20:34)
[2020-11-03 12:36] LABS: Basophils % 0.3 %; Eosinophils # 0.2 K/mcL (0.0-0.6); Eosinophils % 1.9 %; Hematocrit 28.3 % (37.5-50.1); Hemoglobin 8.8 g/dL (12.9-16.9); Immature Granulocytes % 1.6 % (0-4); Lymphocytes # 0.6 K/mcL (0.6-4.6); Lymphocytes % 6.7 %; Mean Corpuscular HGB Conc 31.1 g/dL (31.6-35.5); Mean Corpuscular Hemoglobin 29.8 pg (28.0-33.3); Mean Corpuscular Volume 95.9 fL (83.0-100.0); Monocytes # 0.4 K/mcL (0.0-1.3); Monocytes % 5.1 %; Neutrophils # 7.3 K/mcL (1.6-8.9); Platelet Count 100 K/mcL (140-400); Red Blood Count 2.95 M/mcL (4.19-5.50); Red Cell Distribution Width 18.6 % (11.5-14.5); Segmented Neutrophils % 84.4 %; White Blood Count 8.6 K/mcL (4.3-11.1)
[2020-11-03] MEDS ORDERED: *HR* OxyCODONE Oral Soln 5 MG/5 ML UD.LIQ PO PRN ×2 (15:34→15:35)
[2020-11-03] MEDS ORDERED: Ipratropium/Albuterol Neb 3 ML IH PRN (15:48)
[2020-11-03] MEDS ORDERED: Acetaminophen 325 MG TABLET PO PRN (17:29)
[2020-11-03] MEDS: *HR* HYDROcodone/Acet 5/325 mg TABLET PO PRN (20:35)
[2020-11-04] MEDS: *HR* Enoxaparin 80 MG/0.8 ML SYRINGE SQ SCH ×2 (04:38→17:58)
[2020-11-04] MEDS: Metoclopramide 10 MG/2 ML VIAL IVP SCH (04:39)
[2020-11-04 05:05] LABS: Hematocrit 31.3 % (37.5-50.1); Mean Corpuscular HGB Conc 31.9 g/dL (31.6-35.5); Mean Corpuscular Hemoglobin 30.5 pg (28.0-33.3); Mean Corpuscular Volume 95.4 fL (83.0-100.0); Mean Platelet Volume 9.9 fL (9.4-12.4); Platelet Count 115 K/mcL (140-400); Red Blood Count 3.28 M/mcL (4.19-5.50); Red Cell Distribution Width 18.3 % (11.5-14.5); White Blood Count 9.2 K/mcL (4.3-11.1)
[2020-11-04 05:09] LABS: BUN/Creatinine Ratio 21 (6-26); Blood Urea Nitrogen 14 mg/dL (8-23); Calcium 8.6 mg/dL (8.6-10.3); Carbon Dioxide 24 mEq/L (23-29); Chloride 109 mEq/L (98-107); Glucose 107 mg/dL (70-105); Magnesium 1.7 mg/dL (1.6-2.6); Osmolality,Calculated 287 (280-300); Potassium 3.3 mEq/L (3.5-5.1); Sodium 138 mEq/L (136-145); eGFR For African Americans > 60 (> 60); eGFR For Non-African Americans > 60 (> 60)
[2020-11-04] MEDS: Potassium Chloride Elixir 20 MEQ/15 ML UDC PO SCH ×2 (08:18→21:35)
[2020-11-04] MEDS: Pantoprazole 40 MG VIAL IVP SCH (08:19)
[2020-11-04] MEDS: Furosemide 20 MG/2 ML VIAL IVP SCH ×2 (08:19→21:32)
[2020-11-04] MEDS: Piperacillin/Tazobactam 3.375 GM in 0.9 % Sodium Chloride Mini Bag 100 ML IVPB SCH ×2 (08:20→15:30)
[2020-11-04] MEDS: Famotidine 20 MG TABLET PO SCH (21:32)
[2020-11-05] MEDS: Piperacillin/Tazobactam 3.375 GM in 0.9 % Sodium Chloride Mini Bag 100 ML IVPB SCH ×2 (00:40→08:03)
[2020-11-05] MEDS: *HR* HYDROcodone/Acet 5/325 mg TABLET PO PRN ×2 (00:47→14:38)
[2020-11-05] MEDS: *HR* Enoxaparin 80 MG/0.8 ML SYRINGE SQ SCH (06:04)
[2020-11-05 06:56] VITALS: O2SAT 97
[2020-11-05] MEDS: Famotidine 20 MG TABLET PO SCH (08:01)
[2020-11-05] MEDS: Furosemide 20 MG/2 ML VIAL IVP SCH (08:02)
[2020-11-05] MEDS: Potassium Chloride Elixir 20 MEQ/15 ML UDC PO SCH (08:02)
[2020-11-05 09:05] LABS: Basophils # 0.1 K/mcL (0.0-0.2); Basophils % 0.9 %; Eosinophils # 0.1 K/mcL (0.0-0.6); Eosinophils % 1.2 %; Hematocrit 32.3 % (37.5-50.1); Hemoglobin 9.7 g/dL (12.9-16.9); Immature Granulocytes % 4.5 % (0-4); Lymphocytes # 1.2 K/mcL (0.6-4.6); Lymphocytes % 11.2 %; Mean Corpuscular Hemoglobin 29.9 pg (28.0-33.3); Mean Corpuscular Volume 99.7 fL (83.0-100.0); Mean Platelet Volume 10.6 fL (9.4-12.4); Monocytes # 0.4 K/mcL (0.0-1.3); Neutrophils # 8.4 K/mcL (1.6-8.9); Nucleated Red Blood Cells 0.2 /100 WBC (0); Platelet Count 122 K/mcL (140-400); Red Blood Count 3.24 M/mcL (4.19-5.50); Red Cell Distribution Width 18.9 % (11.5-14.5); Segmented Neutrophils % 78.2 %; White Blood Count 10.8 K/mcL (4.3-11.1)
[2020-11-05 10:15] LABS: BUN/Creatinine Ratio 22 (6-26); Blood Urea Nitrogen 16 mg/dL (8-23); Carbon Dioxide 21 mEq/L (23-29); Chloride 107 mEq/L (98-107); Glucose 122 mg/dL (70-105); Magnesium 1.9 mg/dL (1.6-2.6); Osmolality,Calculated 288 (280-300); Phosphorous 2.8 mg/dL (2.7-4.5); Potassium 3.8 mEq/L (3.5-5.1); Sodium 138 mEq/L (136-145); eGFR For African Americans > 60 (> 60); eGFR For Non-African Americans > 60 (> 60)
[2020-11-05 11:17] LABS: Calcium 8.6 mg/dL (8.6-10.3)
[2020-11-05 16:27] VITALS: BP 118/77; PULSE 87; TEMP 97.5
[2020-11-05] MEDS ORDERED: Furosemide 20 MG TABLET PO SCH (18:00)
[2020-11-06 07:56] LABS: Acinetobacter baumannii by PCR Not Detected (Not Detect); Candida albicans by PCR Not Detected (Not Detect); Candida glabrata by PCR Not Detected (Not Detect); Candida krusei by PCR Not Detected (Not Detect); Candida parapsilosis by PCR Not Detected (Not Detect); Candida tropicalis by PCR Not Detected (Not Detect); Enterobacter cloacae Cmplx PCR Not Detected (Not Detect); Enterobacteriaceae by PCR Not Detected (Not Detect); Enterococcus by PCR Not Detected (Not Detect); Escherichia coli by PCR Not Detected (Not Detect); Klebsiella oxytoca by PCR Not Detected (Not Detect); Klebsiella pneumoniae by PCR Not Detected (Not Detect); Proteus by PCR Not Detected (Not Detect); Pseudomonas aeruginosa by PCR Not Detected (Not Detect); Serratia marcescens by PCR Not Detected (Not Detect); Staphylococcus aureus by PCR Not Detected (Not Detect); Staphylococcus by PCR Not Detected (Not Detect); Streptococcus agalactiae(B)PCR Not Detected (Not Detect); Streptococcus by PCR DETECTED (Not Detect); Streptococcus pneumoniae PCR Not Detected (Not Detect); Streptococcus pyogenes (A) PCR Not Detected (Not Detect)
== END 2020-11-05 17:10 | disposition home or self-care (01) | DRG 329 ==
LOC: SAMDAY 08:20 → 3ANU 08:23 → SUATTDRO 10-27 07:30 → ICNU 11-01 16:42 → 2ANU 11-03 13:22
PROVIDERS: ADMIT Surgery; ATTEND Surgery